=== PATIENT | female | born 1950 | race Two or more races ===

== ENCOUNTER → 2024-01-30 | Outpatient (CLI) | payer MEDICARE, SELFPAY ==
--- NOTE | 2024-01-30 10:30 | XR_ITS ---
Examination: CT chest with intravenous contrast CT abdomen with intravenous contrast CT pelvis with intravenous contrast 2-D coronal and sagittal reconstructions Time of exam: January 30, 2024 1119 hours INDICATIONS: Breast carcinoma diagnosis 2019, patient onset right breast pain beginning 3 months ago, elevated CEA on laboratory examination this month, multiple left lung pulmonary nodules on CT chest May 16, 2013 CTDI: vol (mGy) : 25.6 DLP: (mGycm): 1144 Technique: Multiple axial images of the chest, abdomen and pelvis with intravenous contrast, 3.0 mm slice thickness. Images obtained post intravenous injection Isovue 370 60 cc. 2-D sagittal and coronal reconstructions. Low dose protocols were performed. One or more of the following dose reduction techniques were used; automated exposure control, adjustment of the mA and/or KV according to patient size, use of iterative reconstruction technique. Findings: Thoracic aortic calcification no aneurysmal dilatation Pulmonary artery opacification is poor Skin thickening right breast consistent with treated right breast cancer Significant calcification left anterior descending left circumflex coronary arteries Mild enlargement left ventricle No paratracheal tracheobronchial or bronchopulmonary adenopathy Again noted 15 mm pulmonary nodule posterior left lung compared to 20 mm on May 17, 2003 Interstitial disease throughout the lungs consistent with pulmonary fibrosis No focal liver lesions, liver is irregular in contour with fatty infiltration Splenomegaly AP dimension 12 cm with portosystemic collateral vessels medial to the spleen No pancreatic mass Absent gallbladder Common bile duct 10 mm No hydronephrosis renal or ureteral calculi Abdominal aortic calcification no aneurysmal dilatation Normal appendix No bowel obstruction 25 mm fat-containing umbilical hernia Colonic diverticulosis, no diverticulitis Hypodense mass fundus of uterus 28 mm Urinary bladder intact Significant osteopenia Moderate narrowing hip joints IMPRESSION: 15 mm pulmonary nodule posterior left lung compared to 20 mm on May 17, 2003 Pulmonary fibrosis pattern mild to moderate Cirrhosis Mild splenomegaly Portosystemic collateral vessels medial to the spleen Common bile duct 10 mm, recommend hepatobiliary sonography follow-up Recommend pelvic sonography to assess uterine fundal mass Given the patient's history right breast pain, recommend diagnostic mammography right breast sonography follow-up
== END | disposition home or self-care (01) ==
PROVIDERS: PCP Family Medicine; Referring Provider Physician Assistant; Visit Provider Physician Assistant
DX: R91.1 Solitary pulmonary nodule (principal); K74.60 Unspecified cirrhosis of liver; R16.1 Splenomegaly, not elsewhere classified; R19.00 Intra-abdominal and pelvic swelling, mass and lump, unspecified site; N64.4 Mastodynia
CPT/HCPCS: 71260; 74177; A4649; Q9967

== ENCOUNTER → 2024-06-26 | Outpatient (CLI) | payer MEDICARE, SELFPAY ==
--- NOTE | 2024-06-26 12:00 | XR_ITS ---
Examination: Pelvic ultrasound, transabdominal, complete Technique: Transabdominal ultrasound of the pelvis performed using grayscale imaging Date and time of exam: June 26, 2024 1126 hours INDICATIONS: Mass involving fundus of uterus [address] examination January 30, 2024 FINDINGS: Uterus 5.8 cm poorly visualized Ovaries obscured by bowel gas IMPRESSION: Limited study as above, recommend transvaginal pelvic sonography follow-up
== END | disposition home or self-care (01) ==
PROVIDERS: PCP Family Medicine; Referring Provider Internal Medicine Hematology & Oncology; Visit Provider Internal Medicine Hematology & Oncology
DX: D25.9 Leiomyoma of uterus, unspecified (principal)
CPT/HCPCS: 76856

== ENCOUNTER → 2024-06-27 | Outpatient (CLI) | payer MEDICARE, SELFPAY ==
--- NOTE | 2024-06-27 11:45 | XR_ITS ---
Examination: Diagnostic digital mammography, bilateral Computer aided detection 3-D breast Tomosynthesis, bilateral Date and time of exam: June 27, 2024 1137 hours Compared to mammograms dating to March 25, 2015 Technique: Nonmagnified MLO, CC views of the breasts to been obtained, reconstructed from 3-D Tomosynthesis images. R2 computer aided detection program utilized for evaluation of suspicious masses and/or abnormal calcifications. 3-D Tomosynthesis images obtained. Findings: Scattered areas of fibroglandular density. Decreased volume right breast with scar formation again noted consistent with treated right breast cancer No interval suspicious masses Impression: BI-RADS Category 2: Benign findings Recommend yearly follow-up mammography.
== END | disposition home or self-care (01) ==
LOC: CDIM 11:24
PROVIDERS: PCP Internal Medicine Hematology & Oncology; Referring Provider Internal Medicine Hematology & Oncology; Visit Provider Internal Medicine Hematology & Oncology
DX: R92.323 Mammographic fibroglandular density, bilateral breasts (principal); N64.4 Mastodynia
CPT/HCPCS: 77062; 77066; G0279

== ENCOUNTER → 2024-07-15 | Outpatient (CLI) | payer MEDICARE, SELFPAY ==
--- NOTE | 2024-07-15 11:30 | XR_ITS ---
Examination: Breast ultrasound, unilateral, right complete Date and time of exam: July 15, 2024 1119 hours Comparison June 23, 2020 INDICATIONS: Right breast with redness and pain beginning July 13, 2024, history right breast cancer, strong family history breast cancer, sisters Technique: Real-time skaggs scale ultrasonographic imaging performed right breast including all 4 quadrants as well as nipple retroareolar and axillary region. Findings: Scar formation right breast 9:00 position No cystic or solid mass currently IMPRESSION: No cystic or solid mass currently Recommend 1 additional 3-6 month right breast sonogram follow-up to document stability of scar formation in the 9:00 position right breast
== END | disposition home or self-care (01) ==
PROVIDERS: PCP Physician Assistant; Referring Provider Internal Medicine Hematology & Oncology; Visit Provider Internal Medicine Hematology & Oncology
DX: R92.8 Other abnormal and inconclusive findings on diagnostic imaging of breast (principal)
CPT/HCPCS: 76641

== ENCOUNTER → 2025-02-09 | Outpatient (CLI) | payer MEDICARE, SELFPAY ==
--- NOTE | 2025-02-09 14:00 | XR_ITS ---
Examination: Breast ultrasound, unilateral, right Date and time of exam: February 09, 2025, 1414 hours, comparison July 15, 2024 INDICATIONS: Scar formation right breast 9 o'clock position on ultrasound July 15, 2024, patient states recurrent warmth and redness in the outer right breast post lumpectomy surgery 2019, history left breast cancer with lumpectomy 2019, strong family history breast cancer, sisters Technique: Real-time skaggs scale ultrasonographic imaging performed right breast including all 4 quadrants as well as nipple retroareolar and axillary region. Findings: 9:00 scar formation 19 x 14 x 19 mm IMPRESSION: BI-RADS Category 3: Probably benign findings Recommend 1 additional 6-month right breast sonogram follow-up to document stability of scar formation described above
== END | disposition home or self-care (01) ==
PROVIDERS: PCP Physician Assistant; Referring Provider Internal Medicine Hematology & Oncology; Visit Provider Internal Medicine Hematology & Oncology
DX: N64.4 Mastodynia (principal)
CPT/HCPCS: 76641